=== PATIENT | male | born 1980 | race Caucasian/White ===

== ENCOUNTER 2018-01-06 11:50 | Emergency (ER) | payer BC ==
[~2018-01-06] VITALS: Ht 165.1 cm; Wt 109.1 kg
[2018-01-06] MEDS ORDERED: ZESTRIL 10MG10 MG PO (11:56)
[2018-01-06 12:34] LABS: BASO % 0.6 % (0.0-2.0); EOS # 0.3 (0.0-0.7); EOS % 3.9 % (0-4.0); GRAN # 3.4 (1.4-6.5); GRAN % 48.4 % (42.2-75.2); HEMATOCRIT 44.2 % (42.0-52.0); HEMOGLOBIN 15.5 g/dl (13.5-18.0); LYMPH # 2.6 (1.2-3.4); LYMPH % 36.5 % (20.0-51.0); MEAN CELL VOLUME 93 fl (80.0-100.0); MEAN CORPUSCULAR HEMOGLOBIN 32 pg (27.0-31.0); MEAN CORPUSCULAR HGB CONC 35 g/dl (33.0-37.0); MEAN PLATELET VOLUME 10.5 fl (7.4-10.4); MONO # 0.7 (0.1-0.6); MONO % 10.3 % (1.7-9.3); PLATELET COUNT 321 K/mm3 (130-400); RED BLOOD COUNT 4.78 M/mm3 (4.20-5.60); REDCELL DISTRIBUTION WIDTH-CV 13.1 % (11.5-14.5)
[2018-01-06 12:42] LABS: PROTHROMBIN TIME 11.1 SECONDS (9.7-12.8)
[2018-01-06 12:45] LABS: PARTIAL THROMBOPLASTIN TIME 32.8 SECONDS (26.0-37.0)
[2018-01-06 12:54] LABS: ALANINE AMINOTRANSFERASE 43 U/L (21-72); ALBUMIN 4.4 gm/dL (3.5-5.0); ALKALINE PHOSPHATASE 89 U/L (50-136); ANION GAP 10 mmol/L (7-16); AST,SGOT 29 U/L (15-37); BILIRUBIN,TOTAL 0.2 mg/dL (0.0-1.0); BLOOD UREA NITROGEN 16 mg/dL (9-20); CALCIUM 8.7 mg/dL (8.4-10.2); CARBON DIOXIDE 23 mmol/L (22-30); CHLORIDE 105 mmol/L (98-107); CREATININE, serum 0.79 mg/dL (0.66-1.25); GLUCOSE 117 mg/dL (74-106); LIPASE 97 U/L (23-300); SODIUM 137 mmol/L (137-145); TOTAL PROTEIN 7.6 gm/dL (6.4-8.2)
[2018-01-06 13:07] LABS: TROPONIN-I < 0.012 ng/mL (0.000-0.034)
[2018-01-06] MEDS ORDERED: TOPROL XL 25MG25 MG PO (13:13)
[2018-01-06 13:32] VITALS: BP 121/75; PULSE 66; TEMP 97.2
== END 2018-01-06 13:33 | disposition home or self-care (01) ==
LOC: COL.ER 11:50
PROVIDERS: Physician Assistant
DX: I49.3 Ventricular premature depolarization (principal); I10 Essential (primary) hypertension; F41.9 Anxiety disorder, unspecified